=== PATIENT | female | born 1935 | race Caucasian/White ===

== ENCOUNTER 2018-01-21 13:12 | Day surgery (SDC) | payer MEDICARE ==
[2018-01-20 12:59] VITALS: BMI 22.8
[2018-01-21 14:36] LABS: Hemoglobin 12.3 g/dL (12.0-16.0)
[2018-01-21 14:57] LABS: Anion Gap 12 mmol/L (10-20); BUN (Urea Nitrogen) 26 mg/dL (9.8-20.1); Calc. Creatinine Clearance 55 mL/min (70-130); Calcium 10.1 mg/dL (7.8-10.44); Carbon Dioxide 27 mmol/L (23-31); Chloride 104 mmol/L (98-107); Estimated GFR-MDRD 67; Glucose 112 mg/dL (83-110); Sodium 138 mmol/L (136-145)
[2018-01-21] MEDS ORDERED: Dexamethasone 20 MG/5 ML VIAL ONE (15:35)
[2018-01-21] MEDS ORDERED: Ondansetron HCl/PF 4 MG/2 ML Vial ONE (15:35)
[2018-01-21] MEDS ORDERED: PROPOFOL 200 MG/20 ML VIAL ONE (15:35)
[2018-01-21] MEDS ORDERED: Succinylcholine Chloride 20 MG/ML 10 ml SYRINGE FS ONE (15:35)
[2018-01-21] MEDS ORDERED: Lidocaine 1% PF 5 ML VIAL ONE (15:35)
[2018-01-21] MEDS ORDERED: Lidocaine 1% w/Epinephrine 1:100K 30 ML VIAL ONE (15:57)
[2018-01-21] MEDS ORDERED: Fentanyl 100 MCG/2 ML VIAL ONE (16:04)
[2018-01-21] MEDS ORDERED: Famotidine/PF 20 mg/2ml Vial ONE (16:13)
[2018-01-21] MEDS ORDERED: Morphine 4 MG/ML VIAL ONE (18:35)
[2018-01-21] MEDS ORDERED: traMADol HCl 50 MG TAB ONE (19:14)
--- NOTE | 2018-01-22 12:10 | OP ---
PREOPERATIVE DIAGNOSIS: Right thyroid mass. POSTOPERATIVE DIAGNOSIS: Right thyroid follicular lesion. PROCEDURE PERFORMED: Right thyroid lobectomy. PROCEDURE IN DETAIL: After consent was obtained, the patient was identified and brought to the opera ting room and placed on the operating table in supine position. She was intubated with a laryngeal n erve monitor in the monitor setup and switched to the monitoring setting, which was used throughout t he course of the remainder of the case. The neck was prepped and draped in a standard fashion. The natural skin crease in the lower neck was infiltrated with 1% lidocaine 1:100,000 epinephrine. We th en used a 15 blade to make an incision through the skin and subcutaneous tissues and the electrocaute ry was used to transect through the subcutaneous tissues and through the platysma. Both the inferior and superiorly based subplatysmal flaps were then elevated and a thyroid retractor was used to facil itate exposure. The strap muscles were divided down to the level of the thyroid capsule and the ____ _ dissected free from the thyroid. Once we entered the right plane, we then finger dissected the thy roid from the strap muscles and delivered it into the wound. At this point, it was easy to see the m ultinodular aspect of the enlarged thyroid gland. The inferior vessels, superior vessels and middle vessels were divided and suture ligated. This then allowed for further rotation of the thyroid media lly. The recurrent laryngeal nerve was identified as were the parathyroid glands and these were spar ed in the dissection of the thyroid along the pretracheal plane. Ultimately the thyroid ligament was transected and several small vessels were either ligated, cauterized or a Hemoclip was placed on dominique t. As the thyroid continued to be reflected anteriorly, it was taken away along the pretracheal plan e. The isthmus was encountered, divided and suture ligated. The specimen was sent for frozen sectio n. It appeared to be benign in nature consistent with a follicular lesion. We decided not to procee d with the contralateral lobectomy. Hemostasis was obtained and Surgicel was placed in the deep aspe ct of the wound. The strap muscles were then reapproximated as was the platysma and the skin was azeb sed in a running subcuticular suture. Sterile dressing was applied after Steri-Strips were placed. The patient was awakened, extubated, and taken to recovery room where she remained in stable conditio n prior to discharge home. There were no complications.
== END 2018-01-21 19:55 | disposition home or self-care (01) ==
LOC: SDC 13:12
PROVIDERS: ATTEND Specialist
PROC: 0GBH0ZZ Excision of Right Thyroid Gland Lobe, Open Approach (ICD-10-PCS; principal; 2018-01-21)
DX: E04.2 Nontoxic multinodular goiter (principal); H65.91 Unspecified nonsuppurative otitis media, right ear; H69.90 Unspecified Eustachian tube disorder, unspecified ear; H91.93 Unspecified hearing loss, bilateral; E11.9 Type 2 diabetes mellitus without complications; I10 Essential (primary) hypertension; Z79.82 Long term (current) use of aspirin; Z79.84 Long term (current) use of oral hypoglycemic drugs; Z79.899 Other long term (current) drug therapy
CPT/HCPCS: 36415; 80048; 85014; 85018; 88307; 88311; 88331; 93005; 93010; 96374; J0131; J1100; J2001; J2270; J2405; J2704; J3010; S0028